=== PATIENT | female | born 1980 | race Caucasian/White ===

== ENCOUNTER 2017-04-26 06:12 | Day surgery (SDC) | payer OTHER ==
--- NOTE | 2017-04-25 17:42 | PREOPHP ---
DATE OF ADMISSION: 04/26/2017 REASON FOR ADMISSION: She is to be admitted tomorrow, 04/26/2017 for a laparoscopic bilateral tubal ligation and IUD removal. HISTORY OF PRESENT ILLNESS: This is a 36-year-old female, 3, para 2, with history of 1 norm al delivery, 1 section, who has requested sterilization on the basis of multiparity. The o ther forms of contraception as well as sterilization were discussed at great length in the office. The alternatives, risks of this procedure benefits from it and possible complications as well as 1% failure rate of the procedure was discussed and understood. The patient was allowed to ask question s. All her questions were answered to her satisfaction and she signed the appropriate surgical info rmed consents. PAST MEDICAL HISTORY: The patient denies any medical problems. She has been obese for the majority of her life. She denies any cardiovascular disease, diabetes, renal disease, liver disease, thyroi d disease or neurological problems. ALLERGIES: NO KNOWN ALLERGIES. MEDICATIONS: Takes no medications on a regular basis. SURGICAL HISTORY: section mentioned above. She has been using an IUD and it was removed a fter the procedure. FAMILY HISTORY: Noncontributory. REVIEW OF SYSTEMS: A 12-point review of systems is noncontributory. PHYSICAL EXAMINATION: GENERAL: Well-developed and nourished, in no distress, alert and oriented x3 with a height of 5 fee t 5 inches and a weight of 199 pounds. BMI is 33. VITAL SIGNS: Showed temperature to be 98, blood pressure 127/82, respirations 16 per minute, the pu lse is 72 per minute regular. HEENT: Within normal limits. Pupils are PERRLA. NECK: Supple. Thyroid is not palpable. There is no lymphadenopathy. BREASTS: Show no masses or lumps. Nipples are normal. LUNGS: Clear to percussion and auscultation. HEART: Normal sinus rhythm without a murmur. ABDOMEN: Soft, obese. No organomegalies or hernia present. PELVIC: Bowel is normal. Vagina is normal without lesions. Cervix is normal also. Bimanual exam, the uterus small, firm. There are no adnexal masses present. EXTREMITIES: Within normal limits. NEUROLOGIC: Also normal. IMPRESSION: 1. Multiparity. 2. Obesity. PLAN: She is admitted for laparoscopic bilateral tubal ligation and IUD removal. Dictated By: YASIR CAICEDO/DESTINY Conf#: [id number] DID#: [id number]
[~2017-04-26] VITALS: Ht 165.1 cm; Wt 91.9 kg
[2017-04-26] VITALS (9 sets, daily range): BP systolic 116–137; BP diastolic 63–96; PULSE 73–114; RESP 13–19; Ht 165.1 cm; Wt 91.9 kg
[2017-04-26] MEDS ORDERED: ONDANSETRON 4 MG INJ ONE (07:00)
[2017-04-26] MEDS ORDERED: GLYCOPYRROLATE 0.4 MG INJ ONE (07:00)
[2017-04-26] MEDS ORDERED: NEOSTIGMINE 3 MG/3 ML SYRINGE ONE (07:00)
[2017-04-26 07:40] LABS: ADD SCAN DIFF NO
[2017-04-26 07:54] LABS: BASOPHILS % 0.3 % (0.0-2.0); EOSINOPHILS # 0.1 10^3/ul (0.0-0.5); EOSINOPHILS % 1.3 % (0.0-7.0); HEMATOCRIT 40.4 % (37.0-47.0); LYMPHOCYTES # 2.9 10^3/ul (0.8-2.9); LYMPHOCYTES % 32.3 % (15.0-51.0); MEAN CORPUSCULAR HGB CONC 34.7 g/dl (32.0-37.0); MEAN CORPUSCULAR VOLUME 95.3 fl (82.0-101.0); MEAN PLATELET VOLUME 11.3 fl (7.4-10.4); MONOCYTE # 0.6 10^3/ul (0.3-0.9); MONOCYTES % 6.9 % (0.0-11.0); NEUTROPHIL # 5.3 10^3/ul (1.6-7.5); NEUTROPHILS % 58.8 % (39.0-77.0); PLATELET COUNT 226 10^3/UL (140-415); RED BLOOD COUNT 4.24 10^6/ul (4.20-5.40); RED CELL DISTRIBUTION WIDTH 12.7 % (11.5-14.5); WHITE BLOOD COUNT 9.1 10^3/ul (4.8-10.8)
[2017-04-26] MEDS ORDERED: BUPIVACAINE 0.5%/EPI (SDV) 30 ML INJ ONE (07:55)
[2017-04-26 07:58] LABS: INR 0.88; PROTIME 11.9 Sec (12.2-14.2); PT RATIO 0.9
[2017-04-26 07:59] LABS: PARTIAL THROMBOPLASTIN TIME 26.4 Sec (25.0-35.0)
[2017-04-26] MEDS ORDERED: LACTATED RINGER'S 1,000 ML IV* ONE (08:00)
[2017-04-26] MEDS ORDERED: PROPOFOL 60 ML ONE (08:01)
[2017-04-26] MEDS ORDERED: LIDOCAINE 2% (SDV) 5 ML INJ ONE (08:01)
[2017-04-26 08:03] LABS: ALBUMIN 4.5 g/dl (3.3-4.9); ALBUMIN/GLOBULIN RATIO 1.66; BILIRUBIN,INDIRECT 0.4 mg/dl (0-1.1); BILIRUBIN,TOTAL 0.4 mg/dl (0.2-1.3); TOTAL PROTEIN 7.2 g/dl (6.1-8.1)
[2017-04-26] MEDS ORDERED: CEFAZOLIN 1 GM INJ ONE (08:14)
[2017-04-26] MEDS ORDERED: DEXAMETHASONE 4 MG/ML 1 ML INJ ONE (08:17)
[2017-04-26 08:27] LABS: CALCIUM 9.5 mg/dl (8.4-10.2); CREATININE 0.87 mg/dl (0.44-1.00); POTASSIUM 4.1 mmol/L (3.5-5.1)
[2017-04-26] MEDS ORDERED: BUPIVACAINE 0.5%/EPI (SDV) 30 ML INJ INJ ONE (08:50)
[2017-04-26] MEDS ORDERED: PROPOFOL 20 ML ONE ×2 (09:20)
--- NOTE | 2017-04-26 09:27 | PD.PPDC ---
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
[2017-04-26] MEDS ORDERED: ONDANSETRON 4 MG INJ IV PRN ×2 (09:30)
[2017-04-26] MEDS ORDERED: morphine 2 MG INJ IV PRN (09:30)
[2017-04-26] MEDS ORDERED: LABETALOL HCL 20MG INJ IV PRN (09:30)
[2017-04-26] MEDS ORDERED: OXYCODONE/ACETAMINOPHEN (5/325) TAB PO PRN ×4 (09:30)
[2017-04-26] MEDS ORDERED: IBUPROFEN 600 MG TAB PO PRN (09:30)
[2017-04-26] MEDS ORDERED: hydrALAzine 20 MG INJ IV PRN (09:30)
[2017-04-26] MEDS ORDERED: FENTAnyl 50 MCG/ML VIAL IV PRN ×3 (09:30)
[2017-04-26] MEDS ORDERED: ACETAMINOPHEN 325 MG TAB PO PRN (09:30)
[2017-04-26] MEDS ORDERED: MEPERIDINE 25 MG INJ IV PRN (09:30)
--- NOTE | 2017-04-26 10:32 | OPR ---
DATE OF OPERATION: 04/26/2017 PREOPERATIVE DIAGNOSES: 1. Multiparity. 2. Obesity. 3. Missing IUD. The patient wanted to have the IUD removed during the surgical act. POSTOPERATIVE DIAGNOSES: 1. Multiparity. 2. Obesity. 3. Missing IUD. The patient wanted to have the IUD removed during the surgical act. OPERATION PERFORMED: IUD removal, laparoscopic bilateral tubal ligation with lysis of adhesions. SURGEON: Yasir Walker MD. ANESTHESIA: General. ANESTHESIOLOGIST: Dr. Waddell. ESTIMATED BLOOD LOSS: Negligible. COMPLICATIONS: None. SPECIMENS: None. Pictures were taken for documentation. PROCEDURE AND FINDINGS: With the patient under general anesthesia, laid on the table in the dorsal lithotomy position. Her abdomen was prepped with ChloraPrep and her perineum and vagina with Betadi ne. After 3 minutes, she was draped in the usual sterile fashion for this procedure. A weighted po sterior retractor was applied in the posterior vaginal wall and anterior lip of the cervix grasped w ith a single tooth tenaculum. Then a small curet was inserted and the IUD was pulled out easily wit h no problems. This was a Mirena, and this was sent to pathology. Then, the switchboard operator receptionist removed all t he instruments from the patient's vagina, changed his gloves and turned his attention to the abdomen , where at the level of the umbilicus, made a small 5 mm incision. Through this incision and while we were tenting up the anterior abdominal wall, the Veress needle was inserted. Then, once the tip of the needle was ascertained to be intraperitoneal by the hanging drop saline technique, it was the n connected to the CO2 insufflator. Good pneumoperitoneum was obtained. The needle was removed. A 5 mm trocar was passed in. Through this port, a 5 mm laparoscope with the endocamera was inserted. The patient was placed in Trendelenburg position. Several moderate size adhesions of the omentum to the anterior abdominal wall were seen. Second port, a 5 mm trocar was placed in under direct vis ion without any problems, in the hypogastric area. Through this port now the Kleppinger clamp with the gyrus device at 35 smith of current was inserted. This was directed to the adhesions that were lysed in order to visualize the pelvic organs. Good hemostasis was observed. The left tube was pic ked up in its mid portion and burned through and through for 1.5 cm. The same was done on the contr alateral side. Pictures were taken for documentation. All the instruments were then removed from t he patient's abdomen as well as much CO2 as possible. Then, the incisions were infiltrated with 0.5 % Marcaine with epinephrine, a total of 20 mL and closed with 3-0 Monocryl. Band-Aids were applied and the patient was taken to recovery room with all vital signs stable. EBL was negligible. Needle , sponge and instrument count at the end of the procedure was correct twice. Dictated By: YASIR CAICEDO/DESTINY Conf#: [id number] DID#: [id number]
[2017-04-26 10:54] LABS: ADD UMIC YES; UR ASCORBIC ACID NEGATIVE (NEGATIVE); UR BACTERIA FEW /HPF (NONE SEEN); UR BILIRUBIN (Dip) NEGATIVE (NEGATIVE); UR BLOOD (Dip) NEGATIVE (NEGATIVE); UR CLARITY CLOUDY (CLEAR); UR COLOR YELLOW (YELLOW); UR GLUCOSE (Dip) NEGATIVE (NEGATIVE); UR KETONES (Dip) NEGATIVE (NEGATIVE); UR LEUKOCYTE ESTERASE (Dip) TRACE Leu/ul (NEGATIVE); UR MUCUS FEW /HPF (NONE SEEN); UR NITRITE (Dip) NEGATIVE (NEGATIVE); UR RBC 1 /HPF (0-5); UR SPECIFIC GRAVITY (Dip) 1.018 (1.003-1.030); UR SQUAMOUS EPITHELIAL CELL MANY /HPF (FEW); UR TOTAL PROTEIN (Dip) NEGATIVE (NEGATIVE); UR UROBILINOGEN (Dip) NEGATIVE (NEGATIVE); UR WBC CLUMPS FEW /HPF (NONE SEEN)
[2017-04-26] MEDS ORDERED: LACTATED RINGER'S 1,000 ML IV SCH (12:00)
== END 2017-04-26 11:25 | disposition home or self-care (01) ==
LOC: SDS 06:12
PROVIDERS: ATTEND Specialist
DX: Z30.2 Encounter for sterilization (principal); Z30.432 Encounter for removal of intrauterine contraceptive device; E66.9 Obesity, unspecified; Z68.33 Body mass index [BMI] 33.0-33.9, adult
CPT/HCPCS: 58301; 58670; 80053; 81001; 84703; 85025; 85610; 85730; 86850; 86900; 86901; 88300; J0690; J2405; J2710; J3010; Z7512; Z7610; J1100